=== PATIENT | male | born 1980 | race African-American/Black ===

== ENCOUNTER 2017-01-13 04:40 | Emergency (ER) | payer OTHER ==
[~2017-01-13] VITALS: Ht 165.1 cm; Wt 111.1 kg
--- NOTE | ~2017-01-13 | EKG ---
PATIENT: ZHENG ROAWN UNIT #: [id number] Ventricular Rate: 102 BPM Atrial Rate: 102 BPM P-R Interval: 196 ms QRS Duration: 104 ms Q-T Interval: 354 ms QTC Calculation(Bezet): 461 ms P [place]: 46 degrees Calculated R [place]: 64 degrees Calculated T [place]: 27 degrees Diagnosis Line: Sinus tachycardia Diagnosis Line: Possible Left atrial enlargement Diagnosis Line: Septal infarct , age undetermined Diagnosis Line: Abnormal ECG Diagnosis Line: No previous ECGs available Diagnosis Line: Confirmed by EVON MAHMOOD MD ([id number]) on Diagnosis Line: 01/13/2017 8:43:45 AM INTERPRETING MD: ELA SANTIAGO
[~2017-01-13 04:40] MED LIST: AMOXIL875 MG PO; IBUPROFEN800 MG PO
== END 2017-01-13 08:47 | disposition home or self-care (01) ==
LOC: CFTX 04:40 → CED 04:40 → CFTX 08:14
DX: M25.571 Pain in right ankle and joints of right foot (principal); M79.644 Pain in right finger(s); M79.89 Other specified soft tissue disorders; I10 Essential (primary) hypertension
CPT/HCPCS: 93005; 99283